=== PATIENT | male | born 1980 | race African-American/Black ===

== ENCOUNTER 2024-01-30 17:13 | Emergency (ER) | payer OTHER ==
[2024-01-30] VITALS (7 sets, daily range): BP systolic 140–169; BP diastolic 93–113
[~2024-01-30] VITALS: Ht 175.3 cm; Wt 70.4 kg
[2024-01-30] MEDS ORDERED: ONDANSETRON HCl 4 MG/2 ML SDV IV ONE (19:00)
[2024-01-30] MEDS ORDERED: KETOROLAC TROMETHAMINE 30 MG/ML SDV IV ONE (19:00)
[2024-01-30 19:15] LABS: BASO% 0.5 % (0-3); EOS% 4.5 % (0-8); HEMATOCRIT 46.2 % (39.0-50.0); HEMOGLOBIN 14.8 g/dl (14.0-18.0); LYMPH% 33.3 % (15-41); MEAN CORPUSCULAR HGB 28.5 pG CALC (26.0-32.0); MONO% 10.7 % (2-13); NEUT# 2.25 thou/uL (1.82-7.42); RED BLOOD COUNT 5.19 mill/uL (4.70-6.10); RED CELL DISTRI WIDTH 11.9 % (11.5-15.5)
[2024-01-30 19:16] LABS: BILIRUBIN, TOTAL 0.6 mg/dL (0.2-1.3); CREATININE 0.9 mg/dL (0.7-1.3); POTASSIUM 4.5 mmol/l (3.5-5.1); TOTAL PROTEIN 7.8 g/dL (6.3-8.2)
[2024-01-30 19:19] LABS: INTERNATIONAL NORMALIZED RATIO 1.2 RATIO (0.7-1.3)
[2024-01-30 19:20] LABS: PROTHROMBIN TIME 11.2 SECONDS (9.0-12.5)
== END 2024-01-30 21:30 | disposition short-term general hospital (02) | DRG 184 ==
LOC: ED 17:13
PROVIDERS: Nurse Practitioner
DX: S22.5XXA Flail chest, initial encounter for closed fracture (principal); J91.8 Pleural effusion in other conditions classified elsewhere; B02.9 Zoster without complications; W06.XXXA Fall from bed, initial encounter; Y92.149 Unspecified place in prison as the place of occurrence of the external cause